=== PATIENT | female | born 1950 | race Caucasian/White ===

== ENCOUNTER 2021-10-07 11:53 | Outpatient (CLI) | payer MEDICARE | END 2021-10-07 11:54 | disposition home or self-care (01) | LOC: CSHCT 11:53 | PROVIDERS: ATTEND Internal Medicine Gastroenterology | DX: K62.89 Other specified diseases of anus and rectum (principal); R10.11 Right upper quadrant pain; Z80.0 Family history of malignant neoplasm of digestive organs; K59.09 Other constipation; I77.810 Thoracic aortic ectasia; K76.89 Other specified diseases of liver | CPT/HCPCS: 74177; 82565 ==

== ENCOUNTER 2021-11-03 09:16 | Outpatient (CLI) | payer MEDICARE | END 2021-11-03 09:17 | disposition home or self-care (01) | LOC: CSHMAMMO 09:16 | PROVIDERS: ATTEND Family Medicine | DX: Z12.31 Encounter for screening mammogram for malignant neoplasm of breast (principal) | CPT/HCPCS: 77063; 77067 ==

== ENCOUNTER 2021-11-03 10:09 | Outpatient (CLI) | payer MEDICARE | END 2021-11-03 10:10 | disposition home or self-care (01) | LOC: CSHULT 10:09 | PROVIDERS: ATTEND Family Medicine | DX: I77.9 Disorder of arteries and arterioles, unspecified (principal); I65.23 Occlusion and stenosis of bilateral carotid arteries | CPT/HCPCS: 93880 ==

== ENCOUNTER 2022-11-23 13:11 | Outpatient (CLI) | payer MEDICARE | END 2022-11-23 13:12 | disposition home or self-care (01) | LOC: CSHMAMMO 13:11 | PROVIDERS: ATTEND Family Medicine | DX: Z12.31 Encounter for screening mammogram for malignant neoplasm of breast (principal) | CPT/HCPCS: 77063; 77067 ==

== ENCOUNTER 2023-06-24 07:54 | Outpatient (CLI) | payer MEDICARE | END 2023-06-24 07:55 | disposition home or self-care (01) | LOC: CSHULT 07:54 | PROVIDERS: ATTEND Family Medicine | DX: I10 Essential (primary) hypertension (principal) | CPT/HCPCS: 76770; 93975 ==

== ENCOUNTER 2023-12-23 14:20 | Outpatient (CLI) | payer MEDICARE | END 2023-12-23 14:21 | disposition home or self-care (01) | LOC: CSHMAMMO 14:20 | PROVIDERS: ATTEND Family Medicine | DX: Z12.31 Encounter for screening mammogram for malignant neoplasm of breast (principal) | CPT/HCPCS: 77063; 77067 ==

== ENCOUNTER 2024-12-25 13:04 | Outpatient (CLI) | payer MEDICARE | END 2024-12-25 13:05 | disposition home or self-care (01) | LOC: CSHMAMMO 13:04 | PROVIDERS: ATTEND Family Medicine | DX: Z12.31 Encounter for screening mammogram for malignant neoplasm of breast (principal) | CPT/HCPCS: 77063; 77067 ==